=== PATIENT | male | born 1965 | race American Indian/Alaskan Native ===

== ENCOUNTER 2021-07-01 14:18 | Emergency (ER) | payer SELFPAY ==
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
[2021-07-01] MEDS ORDERED: INSULIN REGULAR, HUMAN 100 UNITS/1 ML IV ONE ×2 (16:36→19:05)
[2021-07-01 16:37] LABS: Basophils # (Auto) 0.1 K/mm3 (0.0-0.1); Basophils % (Auto) 0.9 % (0.0-1.8); Eosinophils # (Auto) 0.3 K/mm3 (0.0-0.4); Eosinophils % (Auto) 4.4 % (0.0-4.3); Hematocrit 33.2 % (35.5-45.6); Hemoglobin 11.1 gm/dl (11.8-15.2); Lymphocytes % (Auto) 30.6 % (13.4-35.0); Mean Corpuscular HGB Conc 34 % (32-34); Mean Corpuscular Volume 91 fl (84-94); Monocytes # (Auto) 0.4 K/mm3 (0.0-0.8); Monocytes % (Auto) 5.7 % (0.0-7.3); Platelet Count 301 K/mm3 (140-440); Red Blood Count 3.66 M/mm3 (3.65-5.03); Red Cell Distribution Width 12.9 % (13.2-15.2)
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
[2021-07-01 16:52] LABS: Albumin 4.3 g/dL (3.9-5); Calcium 9.2 mg/dL (8.4-10.2)
[2021-07-01] MEDS ORDERED: SODIUM CHLORIDE 0.9% 1000 ML 1,000 ML IV ONE (17:03)
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
[2021-07-01 20:12] VITALS: BP 158/91
== END 2021-07-01 21:00 | disposition home or self-care (01) ==
LOC: ED 14:18
DX: S09.90XA Unspecified injury of head, initial encounter (principal); E11.65 Type 2 diabetes mellitus with hyperglycemia; I10 Essential (primary) hypertension; V89.2XXA Person injured in unspecified motor-vehicle accident, traffic, initial encounter; Y93.89 Activity, other specified; Y92.89 Other specified places as the place of occurrence of the external cause; Y99.8 Other external cause status
CPT/HCPCS: 36415; 70450; 72125; 73030; 80053; 82962; 85025; 96361; 96374; 96375; 99285; J7030; Q9967; J1815